=== PATIENT | female | born 1985 | race Two or more races ===

== ENCOUNTER 2023-03-14 18:13 | Inpatient (IN) | payer BC, MEDICAID ==
[~2023-03-14] VITALS: Ht 165.1 cm; Wt 89.1 kg
[2023-03-14] MEDS ORDERED: SODIUM CHLORIDE 0.9% 1,000 ML IV ONE (19:00)
[2023-03-14] MEDS ORDERED: InsuLIN REG 1unit/0.01ml Soln (100units/ml) IV ONE (19:00)
[2023-03-14 19:09] VITALS: TEMP 98.2
[2023-03-14] MEDS ORDERED: DEXTROSE (50%) 50ML SYRG IV PRN (19:30)
[2023-03-14] MEDS ORDERED: InsuLIN R (HUMAN) 100 UNITS in SODIUM CHL 0.9% 99 ML IV SCH (19:30)
[2023-03-14] MEDS ORDERED: INSULIN LANTUS (GLARGINE) 1 /0.01ml (100units/ml) SC ONE (19:30)
[2023-03-14 20:00] VITALS: PULSE 130; RESP 24; O2SAT 96
[2023-03-14 20:05] LABS: Hematocrit 39.6 % (36.0-46.0); Hemoglobin 12.1 g/dL (12.2-16.2); Mean Corpuscular Hemoglobin 30.3 pg (28.0-32.0); Mean Corpuscular Hgb Conc. 30.5 g/dL (32.0-36.0); Mean Corpuscular Volume 99.3 fL (80.0-100.0); Red Blood Cells 3.99 10^6/uL (4.0-5.20); Red Cell Distribution Width 19.3 % (11.8-14.3)
[2023-03-14] MEDS: ACCU-CHEK COMFORT CURVE STRIP VI SCH ×3 (20:07→22:39)
[2023-03-14 20:10] LABS: Albumin 2.9 g/dL (3.4-5.0); Calcium 8.7 mg/dL (8.7-10.4); Magnesium 2.5 mg/dL (1.6-2.6); Potassium 4.9 mmol/L (3.5-5.1)
[2023-03-14] MEDS ORDERED: IOHEXOL 350 MG/ML 100ML IJ ONE (20:11)
[2023-03-14 20:12] LABS: Lactic Acid w/Reflex 3.4 mmol/L (0.4-2.0)
[2023-03-14 20:15] LABS: Basophils % (manual) 0 (0.0-2.0); Blast Cells 0; Metamyelocytes % 0; Myelocytes % 0; Promyelocytes % 0; Reactive Lymphocytes 0
[2023-03-14 20:19] LABS: BUN/Creatinine Ratio 16.2 (10.0-20.0); Bilirubin, Total 0.8 mg/dL (0.2-1.0); Total Protein 6.8 g/dL (6.4-8.2)
[2023-03-14 21:03] LABS: Band Neutrophils % (manual) 4; Eosinophils % (manual) 1 (0-7); Lymphocytes % (manual) 24 (10.0-50.0); Monocytes % (manual) 5 (0-12); Platelet Estimate Increased
[2023-03-14 21:04] LABS: Anisocytosis Slight; Large Platelets FEW
[2023-03-14] MEDS ORDERED: SODIUM BICARBONATE 8.4 % INJ 50ML VIAL IV ONE (21:15)
[2023-03-15] MEDS: ACCU-CHEK COMFORT CURVE STRIP VI SCH ×13 (01:40→16:39)
[2023-03-15] MEDS ORDERED: IBUPROFEN 600 MG TAB PO ONE (01:45)
[2023-03-15] MEDS ORDERED: NITROGLYCERIN 0.4 MG SL TAB SL PRN (03:45)
[2023-03-15] MEDS ORDERED: TEMAZEPAM 15 MG CAP PO PRN (03:45)
[2023-03-15] MEDS ORDERED: DEXTROSE (50%) 50ML SYRG IV PRN ×2 (03:45→10:45)
[2023-03-15] MEDS ORDERED: MORPHINE SULFATE INJ 2 MG/ml SYRG IV PRN ×2 (03:45)
[2023-03-15] MEDS ORDERED: HYDROcodone-ACET 5/325MG TAB PO PRN (03:45)
[2023-03-15] MEDS ORDERED: ACETAMINOPHEN 325 MG TAB PO PRN (03:45)
[2023-03-15] MEDS ORDERED: ONDANSETRON HCL 4 MG/2 ML VIAL IV PRN (03:45)
[2023-03-15 04:39] LABS: BUN/Creatinine Ratio 15.4 (10.0-20.0); Calcium 8.5 mg/dL (8.7-10.4); Potassium 3.9 mmol/L (3.5-5.1)
[2023-03-15] MEDS ORDERED: levoFLOXacin 500MG 100 ML IV SCH (05:00)
[2023-03-15 07:40] VITALS: PULSE 110; RESP 18; O2SAT 97
[2023-03-15] MEDS ORDERED: SODIUM CHLORIDE 0.9% 1,000 ML IV SCH (09:45)
[2023-03-15] MEDS ORDERED: INSULIN LANTUS (GLARGINE) 1 /0.01ml (100units/ml) SC SCH (10:00)
[2023-03-15] MEDS ORDERED: LACTATED RINGER'S 1,000 ML IV SCH (10:45)
[2023-03-15 11:46] LABS: Urine Bacteria NONE SEEN /hpf (None Seen); Urine Blood 1+ /uL (Negative); Urine Clarity Clear (Clear); Urine Color Yellow (Yellow); Urine Mucus FEW (None Seen); Urine Protein, UAD 1+ (Negative); Urine Urobilinogen Normal (Negative); Urine WBC 5 /hpf (0 - 5); Urine pH 6.5 (5.0-8.0)
[2023-03-15] MEDS: InsuLIN REG 1unit/0.01ml Soln (100units/ml) SC SCH ×2 (13:33→16:40)
[2023-03-15 14:30] VITALS: BP 153/81; PULSE 114; RESP 15; O2SAT 96
[2023-03-15 15:14] LABS: Urine Specific Gravity > 1.050 (1.001-1.035)
[2023-03-15 15:22] LABS: Anion Gap 9.8 (5-15); Carbon Dioxide 22.2 mmol/L (20-30); Chloride 104 mmol/L (98-107); Potassium 4.1 mmol/L (3.5-5.1); Sodium 136 mmol/L (136-145)
[2023-03-15 15:23] LABS: Calcium 8.7 mg/dL (8.5-10.1)
[2023-03-15 15:28] LABS: BUN/Creatinine Ratio 15.9 (10.0-20.0); Blood Urea Nitrogen 10 mg/dL (9-23); Glucose 223 mg/dL (74-106)
== END 2023-03-15 16:31 | disposition left against medical advice (07) | DRG 638 ==
LOC: EDBD 18:13 → ER 18:13 → TELE 03-15 03:45
PROVIDERS: ADMIT Nurse Practitioner; ATTEND Nurse Practitioner Acute Care
DX: E10.10 Type 1 diabetes mellitus with ketoacidosis without coma (principal); C79.31 Secondary malignant neoplasm of brain; E87.1 Hypo-osmolality and hyponatremia; C50.919 Malignant neoplasm of unspecified site of unspecified female breast; R74.01 Elevation of levels of liver transaminase levels; E66.9 Obesity, unspecified; D72.819 Decreased white blood cell count, unspecified; Z90.13 Acquired absence of bilateral breasts and nipples; Z88.0 Allergy status to penicillin; Z79.899 Other long term (current) drug therapy; Z68.32 Body mass index [BMI] 32.0-32.9, adult; Z85.3 Personal history of malignant neoplasm of breast
CPT/HCPCS: 36415; 36600; 71275; 80048; 80053; 81001; 82805; 82962; 83036; 83605; 83735; 83880; 84484; 85007; 85027; 85379; 87040; 93970; 96365; 96366; 96367; 96372; 96375; 96376; 99291; G0378; J1815; J1956

== ENCOUNTER 2023-07-28 23:21 | Inpatient (IN) | payer BC, MEDICAID ==
[~2023-07-28] VITALS: Ht 165.1 cm; Wt 91.0 kg
[2023-07-28 23:58] LABS: Basophils # (auto) 0.1 10 ^3/uL (0-0.2); Basophils % (auto) 2.6 % (0.0-2.0); Eosinophils # (auto) 0 10 ^3/uL (0-0.8); Eosinophils % (auto) 0.4 % (0.0-7.0); Hematocrit 41.3 % (36.0-46.0); Lymphocytes # (auto) 1.2 10 ^3/uL (0.4-5.4); Lymphocytes % (auto) 21.3 % (10.0-50.0); Mean Corpuscular Hemoglobin 30.5 pg (28.0-32.0); Mean Corpuscular Volume 89.7 fL (80.0-100.0); Monocytes # (auto) 0.2 10 ^3/uL (0-1.3); Monocytes % (auto) 3.5 % (0.0-12.0); Neutrophils # (auto) 3.9 10 ^3/uL (1.6-8.6); Neutrophils % (auto) 72.2 % (37.0-80.0); Nucleated Red Blood Cells % 0.1 %; Red Cell Distribution Width 13.5 % (11.8-14.3); White Blood Cell 5.4 10^3/uL (4.4-10.8)
[2023-07-29] MEDS ORDERED: HYDROmorphone HCL 2 MG/ML VL/or syr IV ONE
[2023-07-29] MEDS ORDERED: SODIUM CHLORIDE 0.9% 2,750 ML IV ONE
[2023-07-29] MEDS ORDERED: ONDANSETRON HCL 4 MG/2 ML VIAL IV ONE
[2023-07-29 00:15] LABS: Alanine Aminotransferase 132 U/L (7-40); Alkaline Phosphatase 454 U/L (46-116); Calcium 9.8 mg/dL (8.7-10.4); Carbon Dioxide 16 mmol/L (20-30); Chloride 94 mmol/L (98-107); Lipase 36 U/L (12-53); Potassium 3.4 mmol/L (3.5-5.1)
[2023-07-29 00:16] LABS: Albumin 4.8 g/dL (3.2-4.8); Anion Gap 20 (5-15); Aspartate Aminotransferase 133 U/L (13-40); BUN/Creatinine Ratio 14.9 (10.0-20.0); Bilirubin, Total 0.6 mg/dL (0.2-1.0); Blood Urea Nitrogen 17 mg/dL (9-23); Magnesium 1.8 mg/dL (1.6-2.6); Sodium 130 mmol/L (136-145); Total Protein 8.4 g/dL (5.7-8.2)
[2023-07-29 00:19] LABS: Base Excess -7.2 mmol/L (-2.0-2.0)
[2023-07-29 00:28] LABS: INR 0.97 (0.9-1.15); Prothrombin Time 10.2 sec (9.3-11.8)
[2023-07-29 00:34] LABS: Glucose 424 mg/dL (74-106)
[2023-07-29 00:49] LABS: Lactic Acid w/Reflex 7.6 mmol/L (0.4-2.0)
[2023-07-29] MEDS ORDERED: AZTREONAM 1GM INJ 1 GM in D5W 5% 50 ML IV ONE (01:00)
[2023-07-29] MEDS ORDERED: VANCOMYCIN 1GM/200ML 200 ML IV ONE (01:00)
[2023-07-29] MEDS ORDERED: CIPROFLOXACIN 400MG/200ML 200 ML IV ONE (01:00)
[2023-07-29 02:09] LABS: Urine Bacteria NONE SEEN /hpf (None Seen); Urine Blood Negative /uL (Negative); Urine Clarity Clear (Clear); Urine Color Colorless (Yellow); Urine Protein, UAD TRACE (Negative); Urine Specific Gravity 1.035 (1.001-1.035); Urine Urobilinogen Normal (Negative); Urine WBC 11 /hpf (0 - 5)
[2023-07-29] MEDS ORDERED: POTASSIUM CHL 20MEQ/100ML 100 ML IV ONE (02:15)
[2023-07-29] MEDS ORDERED: AZTREONAM 1 GM INJ VIAL ONE (03:04)
[2023-07-29] MEDS ORDERED: SODIUM CHLORIDE 0.9% 1,000 ML IV SCH ×5 (03:15→09:15)
[2023-07-29] MEDS ORDERED: LORazepam 0.5 MG TAB PO PRN (03:15)
[2023-07-29] MEDS ORDERED: MAALOX PLUS or MAALOX 30 ML PO PRN (03:15)
[2023-07-29] MEDS ORDERED: ONDANSETRON HCL 4 MG/2 ML VIAL IV PRN (03:15)
[2023-07-29] MEDS ORDERED: HYDROcodone-ACET 5/325MG TAB PO PRN (03:15)
[2023-07-29] MEDS ORDERED: MORPHINE SULFATE INJ 2 MG/ml SYRG IV PRN (03:15)
[2023-07-29] MEDS ORDERED: INSULIN DRIP 100 UNIT/100ML 100 ML IV SCH ×2 (03:15)
[2023-07-29] MEDS ORDERED: POTASSIUM CHL 20MEQ/100ML 100 ML IV PRN (03:15)
[2023-07-29] MEDS ORDERED: DEXTROSE (50%) 50ML SYRG IV PRN ×2 (03:15)
[2023-07-29] MEDS ORDERED: DOCUSATE SOD 100 MG CAP PO PRN (03:15)
[2023-07-29] MEDS ORDERED: INSULIN LANTUS (GLARGINE) 1 /0.01ml (100units/ml) SC ONE ×2 (03:15)
[2023-07-29] MEDS: SODIUM CHLORIDE 0.9% 1,000 ML IV SCH ×4 (04:00→14:57)
[2023-07-29] MEDS: ACCU-CHEK COMFORT CURVE STRIP VI SCH ×6 (04:20→12:00)
[2023-07-29] MEDS ORDERED: ACCU-CHEK COMFORT CURVE STRIP VI SCH (04:30)
[2023-07-29] MEDS: ACETAMINOPHEN 325 MG TAB PO PRN ×2 (04:39→15:16)
[2023-07-29 05:43] LABS: Basophils # (auto) 0 10 ^3/uL (0-0.2); Basophils % (auto) 0.5 % (0.0-2.0); Eosinophils # (auto) 0 10 ^3/uL (0-0.8); Hemoglobin 13.2 g/dL (12.2-16.2); Lymphocytes # (auto) 0.7 10 ^3/uL (0.4-5.4); Mean Corpuscular Hemoglobin 30.4 pg (28.0-32.0); Mean Corpuscular Hgb Conc. 33.8 g/dL (32.0-36.0); Mean Corpuscular Volume 90.1 fL (80.0-100.0); Monocytes # (auto) 0.2 10 ^3/uL (0-1.3); Monocytes % (auto) 2.8 % (0.0-12.0); Neutrophils % (auto) 86.7 % (37.0-80.0); Red Blood Cells 4.33 10^6/uL (4.0-5.20); Red Cell Distribution Width 13.6 % (11.8-14.3); White Blood Cell 6.9 10^3/uL (4.4-10.8)
[2023-07-29 05:58] LABS: Chloride 101 mmol/L (98-107); Potassium 4.2 mmol/L (3.5-5.1); Sodium 134 mmol/L (136-145)
[2023-07-29 05:59] LABS: Anion Gap 11 (5-15); Carbon Dioxide 22 mmol/L (20-30)
[2023-07-29 06:04] LABS: BUN/Creatinine Ratio 15.1 (10.0-20.0); Blood Urea Nitrogen 11 mg/dL (9-23); Glucose 213 mg/dL (74-106)
[2023-07-29 06:05] LABS: Magnesium 1.9 mg/dL (1.6-2.6)
[2023-07-29 06:06] LABS: Phosphorus 2.6 mg/dL (2.4-5.1)
[2023-07-29] MEDS: InsuLIN REG 1unit/0.01ml Soln (100units/ml) SC SCH ×3 (06:45→17:00)
[2023-07-29 08:30] VITALS: PULSE 119; RESP 18; O2SAT 99
[2023-07-29 09:27] LABS: Chloride 102 mmol/L (98-107); Sodium 133 mmol/L (136-145)
[2023-07-29 09:28] LABS: Anion Gap 8 (5-15); Carbon Dioxide 23 mmol/L (20-30)
[2023-07-29 09:34] LABS: BUN/Creatinine Ratio 9.7 (10.0-20.0); Blood Urea Nitrogen 6 mg/dL (9-23); Glucose 204 mg/dL (74-106)
[2023-07-29] MEDS ORDERED: cefTRIAXone 1GM/50ML D5W 50 ML IV SCH (12:45)
[2023-07-29] MEDS ORDERED: levoFLOXacin 500MG 100 ML IV ONE (13:30)
[2023-07-29 14:45] VITALS: BP_SYST 157; BP_SYST 94; BP_DIAS 93; PULSE 115; RESP 18; TEMP 97.9; O2SAT 97
[2023-07-29 14:46] VITALS: PULSE 115; RESP 20; O2SAT 97
[2023-07-29] MEDS ORDERED: INSUINJ37 SC (14:50)
[2023-07-29] MEDS ORDERED: ABEM150T PO (14:50)
[2023-07-29] MEDS ORDERED: FLUO40CA PO (14:50)
[2023-07-30] MEDS ORDERED: levoFLOXacin 500MG 100 ML IV SCH (10:00)
[2023-07-30] MEDS ORDERED: INSULIN LANTUS (GLARGINE) 1 /0.01ml (100units/ml) SC SCH ×2 (10:00)
== END 2023-07-29 17:00 | disposition left against medical advice (07) | DRG 871 ==
LOC: EDBD 23:21 → EDUNIT# 23:21 → EDSEX 23:21 → ER 23:21 → TELE 07-29 03:03 → TELE-CENTR 07-29 13:47
PROVIDERS: ADMIT Hospitalist; ATTEND Nurse Practitioner Acute Care
DX: A41.9 Sepsis, unspecified organism (principal); E11.10 Type 2 diabetes mellitus with ketoacidosis without coma; N39.0 Urinary tract infection, site not specified; C50.919 Malignant neoplasm of unspecified site of unspecified female breast; E66.9 Obesity, unspecified; Z68.33 Body mass index [BMI] 33.0-33.9, adult; Z88.1 Allergy status to other antibiotic agents; Z88.0 Allergy status to penicillin; E87.6 Hypokalemia; E86.0 Dehydration; Z85.3 Personal history of malignant neoplasm of breast; Z90.13 Acquired absence of bilateral breasts and nipples; Z92.21 Personal history of antineoplastic chemotherapy; Z53.29 Procedure and treatment not carried out because of patient's decision for other reasons
CPT/HCPCS: 36415; 36600; 80048; 80053; 81001; 82010; 82248; 82805; 82962; 83036; 83605; 83690; 83735; 83930; 84100; 84443; 84702; 85025; 85610; 87040; 87086; 96365; 96367; 96368; 96375; 99291; G0378; J1815; J1956; J2405; J3480; J7060